=== PATIENT | female | born 1955 | race Caucasian/White ===

== ENCOUNTER → 2018-01-23 | Outpatient (CLI) | payer MEDICAID | LOC: FIMAGING 12:22 | PROVIDERS: ATTEND Family Medicine | DX: Z12.31 Encounter for screening mammogram for malignant neoplasm of breast (principal); Z13.820 Encounter for screening for osteoporosis; M85.89 Other specified disorders of bone density and structure, multiple sites; Z78.0 Asymptomatic menopausal state ==

== ENCOUNTER → 2018-04-13 | Outpatient (CLI) | payer MEDICAID | LOC: FIMAGING 12:22 | PROVIDERS: ATTEND Family Medicine | DX: S83.422A Sprain of lateral collateral ligament of left knee, initial encounter (principal) ==

== ENCOUNTER → 2018-04-23 | Outpatient (CLI) | payer MEDICAID | LOC: EMCIMAGING 07:31 | PROVIDERS: ATTEND Family Medicine | DX: S83.232A Complex tear of medial meniscus, current injury, left knee, initial encounter (principal); S83.512A Sprain of anterior cruciate ligament of left knee, initial encounter; S83.412A Sprain of medial collateral ligament of left knee, initial encounter; S82.102A Unspecified fracture of upper end of left tibia, initial encounter for closed fracture | CPT/HCPCS: 7372PN ==